=== PATIENT | female | born 1935 | race Caucasian/White ===

== ENCOUNTER 2017-04-23 14:44 | Emergency (ER) | payer OTHER ==
[~2017-04-23] VITALS: Ht 157.5 cm; Wt 79.8 kg
[~2017-04-23 14:44] MED LIST: AMARYL1 MG PO; ATIVAN0.5 MG PO; BETAMETHASONE D15 GM TP; CARVEDILOL12.5 MG PO; CARVEDILOL6.25 MG PO; CELEXA40 MG PO; CITALOPRAM HBR20 MG PO; CITALOPRAM HBR40 MG PO; COREG6.25 M1 PO; COUMADIN5 MG PO; DOCUSATE SODIU100 MG PO; GABAPENTIN100 MG PO; GLIMEPIRIDE1 MG PO; HYDROCHLOROTH12.5 M3 PO; KEFLEX500 MG PO; LISINOPRIL10 MG PO; LISINOPRIL5 MG PO; LO-DOSE ASPIRIN81 M1 PO; LORAZEPAM1 MG PO; LOVENOX80 MG/0.8 SC; OMEPRAZOLE40 M1 PO; OXYBUTYNIN CHLO10 MG PO; OXYCODONE HCL5 MG PO; PRILOSEC20 MG; PRILOSEC20 MG PO; TRAMADOL HCL E100 M1 PO; TRAMADOL HCL50 MG PO; ULTRAM50 MG PO; VITAMIN D31000 UNIT PO
[2017-04-23 17:00] LABS: ADD MIUA? YES; BILIRUBIN NEGATIVE; BLOOD SMALL; COLOR YELLOW ((YELLOW)); GLUCOSE (STRIP) NEGATIVE; KETONES NEGATIVE; LEUKOCYTES NEGATIVE; NITRITE POSITIVE; PROTEIN (STRIP) NEGATIVE; SPECIFIC GRAVITY 1.015 (1.000-1.030); UROBILINOGEN 0.2 MG/DL (0.2-1.0)
[2017-04-23 17:07] LABS: BACTERIA RARE /HPF; EPITHELIAL CELLS RARE /HPF; HYALINE CASTS 0-5 /LPF; MUCUS 1+ /LPF; RED BLOOD CELLS 0-5 /HPF (0-5); UCUL ADDED? NO; WHITE BLOOD CELLS 0-5 /HPF (0-5)
[2017-04-23] MEDS ORDERED: KEFLEX500 MG PO (17:36)
[2017-04-23 18:23] LABS: HEMATOCRIT 39.1 % (36.0-46.0); MCHC 32.7 G/DL (30.0-36.0); MCV 94.7 FL (83-99); MEAN PLAT.VOLUME 10.3 uM^3 (9.5-12.4); PLATELET COUNT 215 K/uL (156-360); RBC DIS.WIDTH-CV 12.8 % (11.8-14.6); RBC DIS.WIDTH-SD 44.3 % (39-53); RED BLOOD COUNT 4.13 M/uL (3.80-5.20); WHITE BLOOD COUNT 7.2 K/uL (4.1-10.2)
[2017-04-23 18:34] LABS: CHLORIDE 104 mEq/L (99-109); POTASSIUM 4.3 mEq/L (3.7-5.4); SODIUM 141 mEq/L (136-147)
[2017-04-23 18:36] LABS: GLUCOSE 114 mg/dL (70-99)
[2017-04-23 18:37] LABS: ANION GAP 9 MEQ/L (2-14)
[2017-04-23 18:40] LABS: GFR ESTIMATE (CALCULATED) 50 mL/min/
[2017-04-23 18:41] LABS: UREA NITROGEN (BUN) 19 mg/dL (9-23)
[2017-04-23] MEDS ORDERED: PRIMIDONE50 MG PO (19:49)
[2017-04-23] MEDS ORDERED: LORAZEPAM1 MG PO (19:50)
[2017-04-23 20:13] VITALS: BP 144/84
== END 2017-04-23 20:14 | disposition home or self-care (01) ==
LOC: EME 14:44
PROVIDERS: Emergency Medicine
DX: M13.862 Other specified arthritis, left knee (principal); M13.861 Other specified arthritis, right knee; N30.90 Cystitis, unspecified without hematuria; M25.552 Pain in left hip; I10 Essential (primary) hypertension
CPT/HCPCS: 73502; 73564; 80048; 81003; 85027; 99281; 99284

== ENCOUNTER 2017-05-30 11:35 | Emergency (ER) | payer OTHER ==
[~2017-05-30] VITALS: Ht 157.5 cm; Wt 76.8 kg
[~2017-05-30 11:35] MED LIST changes: +PRIMIDONE50 MG PO
[2017-05-30 12:47] LABS: HEMATOCRIT 40.9 % (36.0-46.0); MCH 30.4 PG (29.0-34.0); MCHC 33.5 G/DL (30.0-36.0); MCV 90.7 FL (83-99); MEAN PLAT.VOLUME 10.5 uM^3 (9.5-12.4); PLATELET COUNT 291 K/uL (156-360); RBC DIS.WIDTH-SD 42.7 % (39-53); RED BLOOD COUNT 4.51 M/uL (3.80-5.20); WHITE BLOOD COUNT 11.8 K/uL (4.1-10.2)
[2017-05-30 13:09] LABS: CHLORIDE 101 mEq/L (99-109); POTASSIUM 4.4 mEq/L (3.7-5.4); SODIUM 136 mEq/L (136-147)
[2017-05-30 13:12] LABS: GLUCOSE 198 mg/dL (70-99)
[2017-05-30 13:13] LABS: ANION GAP 15 MEQ/L (2-14)
[2017-05-30 13:14] LABS: TOTAL BILIRUBIN 0.5 mg/dL (0.0-1.0)
[2017-05-30 13:15] LABS: ALKALINE PHOSPHATASE 74 IU/L (3-129); GFR ESTIMATE (CALCULATED) 56 mL/min/
[2017-05-30 13:16] LABS: UREA NITROGEN (BUN) 21 mg/dL (9-23)
[2017-05-30 13:19] LABS: LIPASE 26 U/L (1.0-51.0)
[2017-05-30 13:22] LABS: TROP-I INTERPRETATION NEGATIVE; TROPONIN-I 0.07 ng/mL (0.0-0.30)
[2017-05-30 14:25] LABS: ADD MIUA? YES; BILIRUBIN NEGATIVE; BLOOD SMALL; COLOR YELLOW ((YELLOW)); GLUCOSE (STRIP) 50; KETONES 20; LEUKOCYTES MODERATE; NITRITE NEGATIVE; PROTEIN (STRIP) 30; SPECIFIC GRAVITY 1.014 (1.000-1.030); UROBILINOGEN 0.2 MG/DL (0.2-1.0)
[2017-05-30 14:32] LABS: BACTERIA RARE /HPF; EPITHELIAL CELLS 2+ /HPF; MUCUS TRACE /LPF; RED BLOOD CELLS 0-5 /HPF (0-5); UCUL ADDED? YES
[2017-05-30 16:30] VITALS: BP 127/80
== END 2017-05-30 17:14 | disposition home or self-care (01) ==
LOC: EME 11:35
PROVIDERS: Emergency Medicine
DX: R10.9 Unspecified abdominal pain (principal); E11.9 Type 2 diabetes mellitus without complications; I10 Essential (primary) hypertension; K21.9 Gastro-esophageal reflux disease without esophagitis
CPT/HCPCS: 74177; 80053; 81003; 83690; 84484; 85027; 87086; 93005; 99281; 99285; J2270; J2405; J2930; J7030

== ENCOUNTER 2017-06-14 12:29 | Inpatient (IN) | payer OTHER ==
[~2017-06-14] VITALS: Ht 165.1 cm; Wt 76.8 kg
[2017-06-14 13:59] LABS: MCH 30.4 PG (29.0-34.0); NRBC (%) 0.2 /100 WBC (0-0); RBC DIS.WIDTH-CV 13.2 % (11.8-14.6); RBC DIS.WIDTH-SD 51.1 % (39-53); RED BLOOD COUNT 4.01 M/uL (3.80-5.20); WHITE BLOOD COUNT 16.5 K/uL (4.1-10.2)
[2017-06-14 14:00] LABS: ADD MIUA? NO; BILIRUBIN NEGATIVE; BLOOD NEGATIVE; COLOR YELLOW ((YELLOW)); GLUCOSE (STRIP) NEGATIVE; KETONES NEGATIVE; LEUKOCYTES NEGATIVE; NITRITE NEGATIVE; PROTEIN (STRIP) NEGATIVE; SPECIFIC GRAVITY 1.016 (1.000-1.030); UCUL ADDED? NO; UROBILINOGEN 0.2 MG/DL (0.2-1.0)
[2017-06-14 14:02] LABS: MCV 104.7 FL (83-99)
[2017-06-14 14:04] LABS: INTER. NORMALIZED RATIO 1.2; PROTHROMBIN TIME 13.5 SEC (10.2-12.9)
[2017-06-14 14:06] LABS: PTT 42.5 SEC (25-37)
[2017-06-14 14:07] LABS: CHLORIDE 105 mEq/L (99-109); POTASSIUM 4.9 mEq/L (3.7-5.4); SODIUM 136 mEq/L (136-147)
[2017-06-14 14:08] LABS: MAGNESIUM 2.5 mg/dL (1.3-2.7)
[2017-06-14 14:10] LABS: GLUCOSE 651 mg/dL (70-99)
[2017-06-14 14:11] LABS: ANION GAP 25 MEQ/L (2-14)
[2017-06-14 14:13] LABS: GFR ESTIMATE (CALCULATED) 25 mL/min/
[2017-06-14 14:14] LABS: UREA NITROGEN (BUN) 30 mg/dL (9-23)
[2017-06-14 14:21] LABS: TROP-I INTERPRETATION NEGATIVE
[2017-06-14 14:54] LABS: ABS NEUTROPHIL COUNT 8.4; ANISOCYTOSIS 1+; ATYPICAL LYMPHOCYTE 1.9 %; BAND NEUTROPHILS 4.7 % (0-8.0); EOSINOPHIL ABS CT 0; INSTRUMENT ABS NEUTROPHIL CT 6.4 K/uL; LYMPHOCYTES 41.5 % (15.0-45.0); MACROCYTES 1+; METAMYELOCYTES 1.9 %; MYELOCYTES 1.9 %; NUCLEATED RBC'S 0.9; PLAT.SUFFICIENCY DECREASED; SEG.NEUTROPHILS 46.2 % (46.0-76.0)
[2017-06-14 15:27] LABS: PLATELET COUNT 106 K/uL (156-360)
[2017-06-14 15:39] VITALS: BP 80/56
[2017-06-16 16:59] LABS: POINT-OF-CARE METER ID UU13113747; POINT-OF-CARE USER ID STWBNM
== END 2017-06-14 15:47 | DRG 208 ==
LOC: EME 12:29 → EDOF 13:49 → ENRESERV 13:50 → CANRESERV 14:14 → ENRESERV 15:37 → EDOF 15:47
PROVIDERS: Emergency Medicine; Internal Medicine Critical Care Medicine
DX: I26.92 Saddle embolus of pulmonary artery without acute cor pulmonale (principal); I46.8 Cardiac arrest due to other underlying condition; W19.XXXA Unspecified fall, initial encounter; Z96.642 Presence of left artificial hip joint; R07.9 Chest pain, unspecified; Y93.9 Activity, unspecified; Y92.9 Unspecified place or not applicable; Y99.9 Unspecified external cause status
CPT/HCPCS: 70450; 71010; 71275; 74177; 80048; 81003; 82948; 83735; 84484; 85025; 85610; 85730; 86850; 86900; 86901; 92950; 93005; 94002; 99281; 99285; C1751; J0171; J0461; J1200; J2930; J2997; J7050